=== PATIENT | female | born 1990 | race Caucasian/White ===

== ENCOUNTER 2017-11-06 19:02 | Emergency (ER) | payer BC, SELFPAY | END 2017-11-06 22:37 | disposition home or self-care (01) | LOC: ERS 19:02 | DX: S31.41XA Laceration without foreign body of vagina and vulva, initial encounter (principal); E11.9 Type 2 diabetes mellitus without complications; I10 Essential (primary) hypertension; J45.909 Unspecified asthma, uncomplicated; E66.9 Obesity, unspecified; F32.9 Major depressive disorder, single episode, unspecified; F17.290 Nicotine dependence, other tobacco product, uncomplicated; Z79.84 Long term (current) use of oral hypoglycemic drugs; X58.XXXA Exposure to other specified factors, initial encounter | CPT/HCPCS: 99283 ==

== ENCOUNTER 2019-04-13 10:02 | Emergency (ER) | payer SELFPAY ==
[2019-04-13] MEDS ORDERED: Acetaminophen 500 MG TAB ONE (10:12)
--- NOTE | 2019-04-13 10:33 | RAD ---
XR Chest 1 View Portable HISTORY: Fever, body aches, shortness of breath, dizziness COMPARISON: 04/07/2013 FINDINGS: The heart size is normal. The lungs are well expanded without focal areas of consolidation, pneumothorax or pleural effusions. IMPRESSION: No radiographic evidence of acute cardiopulmonary process.
== END 2019-04-13 11:36 | disposition home or self-care (01) ==
LOC: ERS 10:02
DX: J10.1 Influenza due to other identified influenza virus with other respiratory manifestations (principal); E66.9 Obesity, unspecified; E11.9 Type 2 diabetes mellitus without complications; I10 Essential (primary) hypertension; J45.909 Unspecified asthma, uncomplicated; F32.9 Major depressive disorder, single episode, unspecified; F17.290 Nicotine dependence, other tobacco product, uncomplicated; Z79.84 Long term (current) use of oral hypoglycemic drugs
CPT/HCPCS: 36416; 71045; 87804

== ENCOUNTER 2020-12-06 07:54 | Outpatient (CLI) | payer BC | END 2020-12-06 07:55 | disposition home or self-care (01) | LOC: BICULT 07:54 | PROVIDERS: ATTEND Obstetrics & Gynecology | DX: N91.4 Secondary oligomenorrhea (principal); N83.201 Unspecified ovarian cyst, right side | CPT/HCPCS: 76856 ==

== ENCOUNTER 2020-12-28 07:45 | Outpatient (CLI) | payer BC | END 2020-12-28 07:46 | disposition home or self-care (01) | LOC: BICULT 07:45 | PROVIDERS: ATTEND Obstetrics & Gynecology | DX: N91.4 Secondary oligomenorrhea (principal); N83.201 Unspecified ovarian cyst, right side; N83.202 Unspecified ovarian cyst, left side; R93.89 Abnormal findings on diagnostic imaging of other specified body structures | CPT/HCPCS: 76856 ==

== ENCOUNTER 2021-03-07 08:34 | Outpatient (CLI) | payer BC | END 2021-03-07 08:35 | disposition home or self-care (01) | LOC: BICULT 08:34 | PROVIDERS: ATTEND Family Medicine | DX: N93.9 Abnormal uterine and vaginal bleeding, unspecified (principal) | CPT/HCPCS: 76856 ==